=== PATIENT | male | born 1970 ===

== ENCOUNTER 2018-03-18 22:07 | Emergency (ER) | payer OTHER ==
[~2018-03-18] VITALS: Ht 175.3 cm; Wt 81.6 kg
[~2018-03-18 22:07] MED LIST: BENADRYL25 MG PO; CORTISPORIN EAR10 ML OT; IMODIUM A-D2 MG PO; LEVSIN/SL0.125 MG SL; ORPH100T PO; PHENERGAN25 MG PO; TRAMADOL HCL-AP1 TAB PO; ZYNCOF 20-400120 ML PO
[2018-03-19] MEDS ORDERED: PROMETH-CODEIN 65 ML PO (01:36)
[2018-03-19] MEDS ORDERED: MEDROLPACK PO (01:36)
[2018-03-19] MEDS ORDERED: MUCINEX DM ER1 EAC1 PO (01:36)
[2018-03-19] MEDS ORDERED: LEVAQUIN750 MG PO (01:36)
[2018-03-19] MEDS ORDERED: VENTOLIN HFA18 GM IH (01:36)
[2018-03-19] MEDS ORDERED: IPRAT-ALBUT 0.5-3 ML IH (01:36)
== END 2018-03-19 01:32 | disposition home or self-care (01) ==
LOC: ER 22:07
DX: J06.9 Acute upper respiratory infection, unspecified (principal)

== ENCOUNTER 2018-07-31 19:33 | Emergency (ER) | payer OTHER ==
[~2018-07-31] VITALS: Ht 175.3 cm; Wt 96.2 kg
[~2018-07-31 19:33] MED LIST changes: +IPRAT-ALBUT 0.5-3 ML IH; +LEVAQUIN750 MG PO; +MEDROLPACK PO; +MUCINEX DM ER1 EAC1 PO; +PROMETH-CODEIN 65 ML PO; +VENTOLIN HFA18 GM IH
== END 2018-07-31 20:32 | disposition home or self-care (01) ==
LOC: ER 19:33
DX: S69.81XA Other specified injuries of right wrist, hand and finger(s), initial encounter (principal); X58.XXXA Exposure to other specified factors, initial encounter; Y93.89 Activity, other specified; Y92.89 Other specified places as the place of occurrence of the external cause; Y99.8 Other external cause status

== ENCOUNTER → 2021-08-10 | Emergency (ER) | payer OTHER ==
[~2021-08-10] VITALS: Ht 175.3 cm; Wt 103.4 kg
== END | disposition home or self-care (01) ==
LOC: ER 18:31
DX: J06.9 Acute upper respiratory infection, unspecified (principal); U07.1 COVID-19

== ENCOUNTER 2022-02-01 10:37 | Emergency (ER) | payer OTHER ==
[~2022-02-01] VITALS: Ht 175.3 cm; Wt 104.3 kg
[2022-02-01] MEDS ORDERED: LOSARTAN-HCTZ1 EAC2 (10:46)
== END 2022-02-01 16:02 | disposition home or self-care (01) ==
LOC: ER 10:37
DX: M94.0 Chondrocostal junction syndrome [Tietze] (principal); R07.89 Other chest pain; I10 Essential (primary) hypertension; Z88.6 Allergy status to analgesic agent